=== PATIENT | male | born 1970 | race Caucasian/White ===

== ENCOUNTER 2023-11-26 07:29 | Day surgery (SDC) | payer MEDICAID ==
[2023-11-26] VITALS (13 sets, daily range): BP systolic 98–116; BP diastolic 54–78; PULSE 62–73; RESP 14–16; TEMP 98; O2SAT 96–98
[~2023-11-26] VITALS: Ht 180.3 cm; Wt 113.8 kg
[2023-11-26] MEDS ORDERED: dextrose 50%-water 50ml dispensing syringe IV PRN ×2 (07:50)
[2023-11-26] MEDS ORDERED: MESSAGE TO PHARMACY PO ONE (07:50)
[2023-11-26] MEDS ORDERED: insulin Lispro (HumaLOG) vial - multi-dose SQ SCH (07:50)
[2023-11-26] MEDS ORDERED: nitroGLYCERIN 0.4mg SUBLingual tab SL PRN (07:50)
[2023-11-26] MEDS ORDERED: DEXTROSE 15 GM of carb/4 tabs (each vial/BOTTLE has 4 tablets) PO PRN ×2 (07:50)
[2023-11-26] MEDS ORDERED: glucagon, human recombinant 1mg kit SUBCUT PRN (07:50)
[2023-11-26] MEDS ORDERED: LORazepam 0.5 MG tablet PO PRN (07:50)
[2023-11-26] MEDS ORDERED: FURO40TA4 PO (07:56)
[2023-11-26] MEDS ORDERED: FENO160T PO (07:56)
[2023-11-26] MEDS ORDERED: HYDR-3972 PO (07:56)
[2023-11-26] MEDS ORDERED: CLOP75TA34 PO (07:56)
[2023-11-26] MEDS ORDERED: ROSU40TA22 PO (07:56)
[2023-11-26] MEDS ORDERED: VALS40TA11 PO (07:56)
[2023-11-26] MEDS ORDERED: SPIR25TA5 PO (07:56)
[2023-11-26] MEDS ORDERED: CYCL-1 PO (07:56)
[2023-11-26] MEDS ORDERED: ASPI-1397 PO (07:56)
[2023-11-26] MEDS ORDERED: DAPA10TA PO (07:57)
[2023-11-26] MEDS ORDERED: METO-395 PO (07:57)
[2023-11-26 08:23] LABS: BASOPHILS % (AUTO) 0.7 % (0-1); EOSINOPHILS # (AUTO) 0.1 X10'3 (0-0.9); HEMATOCRIT 40.5 % (42.0-52.0); HEMOGLOBIN 14.1 g/dl (14.0-17.9); LYMPHOCYTES # (AUTO) 1.7 X10'3 (1.1-4.8); LYMPHOCYTES % (AUTO) 38.8 % (21-51); MEAN CORPUSCULAR HEMOGLOBIN 31.1 PG (27.0-31.0); MEAN CORPUSCULAR HGB CONC 34.7 g/dL (33.0-36.5); MEAN CORPUSCULAR VOLUME 89.5 FL (78-98); MEAN PLATELET VOLUME 6.7 FL (7.4-10.4); MONOCYTES # (AUTO) 0.6 X10'3 (0-0.9); MONOCYTES % (AUTO) 15.2 % (2-12); NEUTROPHILS # (AUTO) 1.8 X10'3 (1.8-7.7); NEUTROPHILS % (AUTO) 42.3 % (42-75); PLATELET COUNT 264 X10'3 (140-440); RED BLOOD COUNT 4.52 X10'6 (4.70-6.10); RED CELL DISTRIBUTION WIDTH 13.4 % (11.5-14.5); WHITE BLOOD COUNT 4.3 X10'3 (4.5-11.0)
[2023-11-26] MEDS ORDERED: midazolam 1 mg/ML 2ml injection ONE ×2 (08:41→09:39)
[2023-11-26] MEDS ORDERED: fentaNYL/PF 50MCG/1 ML 2ML syringe ONE (08:41)
[2023-11-26] MEDS ORDERED: LIDOcaine 1% 30ml preserv. free vial ONE (08:41)
[2023-11-26] MEDS ORDERED: iohexol 350 MG/ML 50ML vial IV ONE (08:41)
[2023-11-26] MEDS ORDERED: iohexol 350MG/ML 100ml bottle IV ONE (08:41)
[2023-11-26 08:42] LABS: ALBUMIN 3.8 G/DL (3.4-5.0); ANION GAP 8 (8-16); APTT 26 SECONDS (22-32); BLOOD UREA NITROGEN 24 MG/DL (7-18); BUN/CREATININE RATIO 17.6 (10.0-20.0); CALCIUM 8.3 MG/DL (8.5-10.1); CHLORIDE 107 MMOL/L (99-107); CREATININE 1.36 MG/DL (0.60-1.10); GLUCOSE 102 MG/DL (70-104); PLATELET ESTIMATE NORMAL; POTASSIUM 4.1 MMOL/L (3.5-5.1); PROTHROMBIN TIME 10.9 SECONDS (9.0-12.0); SODIUM 138 MMOL/L (135-145); TOTAL CARBON DIOXIDE 22.6 MMOL/L (24-32); TOTAL CELLS COUNTED 100; eCRCL 68 ML/MIN; eGFR 55 ML/MIN
[2023-11-26] MEDS: diphenhydrAMINE 25mg capsule PO PRN (08:46)
[2023-11-26] MEDS: normal saline 1,000 ML IV SCH (08:46)
[2023-11-26 09:04] LABS: PRO BRAIN NATRIURETIC PEPTIDE 143 PG/ML (0-125)
[2023-11-26] MEDS ORDERED: acetaminophen 325mg tablet PO PRN (10:30)
[2023-11-26] MEDS ORDERED: ondansetron/PF 4mg/2ml inj IV PRN (10:30)
[2023-11-26] MEDS ORDERED: OXAZEpam 15mg capsule PO PRN (10:30)
[2023-11-26] MEDS ORDERED: normal saline 1000ml 1,000 ML IV SCH (10:30)
[2023-11-26] MEDS ORDERED: HYDROcodone/acetaminophen 5mg/325mg tablet PO PRN (10:30)
[2023-11-26] MEDS: HYDROcodone/acetaminophen 10/325mg tab PO PRN (13:01)
[2023-11-26] MEDS: proCHLORperazine 10 MG/2 ml inj IV PRN (13:01)
[2023-11-26] MEDS ORDERED: insulin glargine (Lantus) pen - multi-dose SQ SCH (21:00)
== END 2023-11-26 17:00 | disposition home or self-care (01) ==
LOC: SSTAY O 07:29
PROVIDERS: ATTEND Internal Medicine Cardiovascular Disease
DX: I25.5 Ischemic cardiomyopathy (principal); I25.10 Atherosclerotic heart disease of native coronary artery without angina pectoris; E78.5 Hyperlipidemia, unspecified; E11.9 Type 2 diabetes mellitus without complications; I25.2 Old myocardial infarction; Z87.891 Personal history of nicotine dependence; Z95.5 Presence of coronary angioplasty implant and graft; Z72.89 Other problems related to lifestyle; F15.91 Other stimulant use, unspecified, in remission; Z79.899 Other long term (current) drug therapy; Z79.01 Long term (current) use of anticoagulants; Z79.82 Long term (current) use of aspirin
CPT/HCPCS: 36415; 71046; 80048; 82948; 83880; 84484; 85025; 85610; 85730; 93005; 93458; 99152; 99153; J0780; J1644; J1815; J2250; J3010; J3490; J7030; Q0163; Q9967; 85007; 85008; A6258; C1760